=== PATIENT | male | born 2000 | race Hispanic/Latino ===

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

== ENCOUNTER 2022-10-18 14:59 | Emergency (ER) | payer OTHER ==
[~2022-10-18] VITALS: Ht 177.8 cm; Wt 65.8 kg
[~2022-10-18 14:59] MED LIST: CLEOCIN HCL300 MG PO; DOXYCYCLINE HY100 MG PO; IBUPROFEN IB200 MG PO
[2022-10-18] MEDS ORDERED: ONDANSETRON HCL INJ 2MG/ML 2ML 2 MG/ML VIAL ONE (15:13)
[2022-10-18] MEDS ORDERED: FAMOTIDINE 20 MG/2 ML VIAL IV ONE ×2 (15:13→15:45)
[2022-10-18] MEDS ORDERED: SODIUM CHLORIDE 0.9% 1000ML 1,000 ML ONE (15:13)
[2022-10-18] MEDS ORDERED: ONDANSETRON HCL INJ 2MG/ML 2ML 2 MG/ML VIAL IV STA (15:19)
[2022-10-18] MEDS ORDERED: FAMOTIDINE 20 MG/2 ML VIAL IV STA (15:19)
[2022-10-18] MEDS ORDERED: SODIUM CHLORIDE 0.9% 1000ML 1,000 ML IV ONE (15:30)
[2022-10-18] MEDS ORDERED: SODIUM CHLORIDE 0.9% 1000ML 1,000 ML IV STA (15:37)
[2022-10-18] MEDS ORDERED: ONDANSETRON HCL INJ 2MG/ML 2ML 2 MG/ML VIAL IV ONE (15:45)
[2022-10-18] MEDS ORDERED: KETOROLAC TROMETHAMINE 30 MG/ML VIAL IV ONE (15:45)
[2022-10-18] MEDS ORDERED: MAALOX MAXIMUM355 ML PO (16:21)
[2022-10-18] MEDS ORDERED: FAMOTIDINE20 MG PO (16:21)
[2022-10-18] MEDS ORDERED: ONDANSETRON ODT4 MG PO (16:21)
== END 2022-10-18 16:25 | disposition home or self-care (01) ==
LOC: FSED 15:12
DX: R11.2 Nausea with vomiting, unspecified (principal); K52.9 Noninfective gastroenteritis and colitis, unspecified; K57.30 Diverticulosis of large intestine without perforation or abscess without bleeding; R10.30 Lower abdominal pain, unspecified
CPT/HCPCS: 74176; 80048; 80076; 81003; 85025; 96374; 96375; 96376; 99284; J2405; J7030